=== PATIENT | female | born 1990 | race African-American/Black ===

== ENCOUNTER 2019-06-22 13:09 | Emergency (ER) | payer OTHER, SELFPAY ==
[2019-06-22 13:20] VITALS: BP 106/56; PULSE 68; RESP 18; TEMP 36.6; O2SAT 100
--- NOTE | 2019-06-22 13:40 | ED.URI ---
HPI - URI/Sore Throat General Chief Complaint: Upper Respiratory Infection Stated Complaint: Congestion Time Seen by Provider: 06/22/19 13:27 Source: patient and RN notes reviewed Mode of arrival: ambulatory Limitations: no limitations History of Present Illness HPI Narrative: Patient presents today with a 7-day history of nasal gesturing, cough that is occasionally productive, postnasal drip. Denies fever, shortness of breath. No history of asthma or COPD. She is a non-smoker. She has tried no medications or interventions at home prior to arrival. MD elicited complaint: cough and nasal congestion Related Data Home Medications Medication Instructions Recorded Confirmed multivitamin 06/22/19 Allergies Allergy/AdvReac Type Severity Reaction Status Date / Time Penicillins Allergy Unknown LIP SWELLS Verified 09/22/17 10:17 Review of Systems Review of Systems: Narrative: CONSTITUTIONAL: Denies body aches, fever, chills, or sweats. EYES: Denies visual changes, redness, or discharge. ENT: Denies rhinorrhea, sore throat, or otalgia.+ Congestion, postnasal drip CARDIOVASCULAR: Denies chest pain, palpitations, or edema. RESPIRATORY: Denies dyspnea.+ Cough GASTROINTESTINAL: Denies abdominal pain, nausea, vomiting, or diarrhea. GENITOURINARY: Denies dysuria or hematuria. SKIN: Denies rash, itching, or wounds. MUSCULOSKELETAL: Denies back pain, joint pain, or myalgia. NEUROLOGIC: Denies headache, numbness, tingling, or weakness. PSYCH: Denies depression or anxiety. PMFSH Comments At time of signature, I have reviewed and agree with nursing past medical, surgical, social and family history unless otherwise noted. Please see nursing chart for further information. There is no relevant family history pertinent to the presenting complaint Exam Narrative: Exam Narrative: GENERAL: Well-appearing, well-nourished, and in no acute distress. HEAD: Normocephalic, atraumatic. EYES: EOMI. No redness or drainage. Conjunctivae normal. ENT: Mucous membranes pink and moist. Nares clear. No rhinorrhea. TMs normal bilaterally. Throat normal. Small amount of post nasal drip. Uvula midline. NECK: Normal AROM. Supple. No lymphadenopathy. CHEST: No respiratory distress. Clear to auscultation. HEART: Regular rate and rhythm. No murmur appreciated. Normal peripheral pulses. EXTREMITIES: Normal range of motion. No edema. SKIN: Warm, dry, no rash. NEURO: No focal deficits. Alert and oriented x3. Gait steady. PSYCH: Normal affect. No signs of depression or anxiety. Course Vital Signs Vital signs: Vital Signs Temperature 97.8 F 06/22/19 13:20 Pulse Rate 68 06/22/19 13:20 Respiratory Rate 18 06/22/19 13:20 Blood Pressure 106/56 L 06/22/19 13:20 Pulse Oximetry 100 06/22/19 13:20 Temperature 97.8 F 06/22/19 13:20 Pulse Rate 68 06/22/19 13:20 Respiratory Rate 18 06/22/19 13:20 Blood Pressure 106/56 L 06/22/19 13:20 Pulse Oximetry 100 06/22/19 13:20 Reviewed MDM - URI/Sore Throat Differential Diagnosis Differential diagnosis: Likely upper respiratory infection, otitis media, sinusitis, viral infection, bronchitis and pharyngitis Critical Care Time Critical Care Time Critical Care Time: No Discharge Plan Discharge Clinical Impression: Upper respiratory infection Qualifiers: URI type: unspecified URI Qualified Code(s): J06.9 - Acute upper respiratory infection, unspecified Patient Disposition: Home, Self-Care Condition: Stable Instructions: Upper Respiratory Infection (DC) Additional Instructions: Your symptoms are likely due to a viral illness, which is not treated with antibiotics. Virus symptoms can last for up to 10-14 days. Take Tylenol or ibuprofen for pain or fever. Take [id number] cough medicine if needed for cough such as Delsym, DayQuil, NyQuil. Rest and stay hydrated. Follow up with your PCP in 5-7 days if symptoms are not improving, or sooner if symptoms are wor
== END 2019-06-22 13:42 | disposition home or self-care (01) ==
PROVIDERS: Emergency Provider Nurse Practitioner
DX: J06.9 Acute upper respiratory infection, unspecified (principal)
CPT/HCPCS: 99211; G0463

== ENCOUNTER 2021-02-21 12:42 | Emergency (ER) | payer OTHER, SELFPAY ==
[2021-02-21 14:04] VITALS: BP 110/79; PULSE 92; RESP 18; TEMP 36.8; O2SAT 100
--- NOTE | 2021-02-21 15:48 | PC.NURSE ---
Pt updated on plan, pt states she has not been seen yet, ensured her she will be seen by Dr. Laureano soon as he can, pt states understanding and states she will wait a little longer, pt ask for socks, pt provided socks
--- NOTE | 2021-02-21 16:16 | ED.URI ---
HPI - URI/Sore Throat General Chief Complaint: Upper Respiratory Infection Stated Complaint: day 6 of COVID temp of 104.1 Time Seen by Provider: 02/21/21 15:39 History of Present Illness HPI Narrative: Patient presents with shortness of breath and fever. She was diagnosed with Covid approximately 6 days ago she been using [id number] medications with been intermittently effective for she and the symptoms she was concerned so came to the ER for evaluation. Primary concern is continuation of her fevers that resolved after owrz-dsb-btzpwws medications but returned several hours later. She also reports cough and shortness of breath. Denies any nausea or vomiting. Reports decreased appetite but she has tolerating p.o. Related Data Home Medications Medication Instructions Recorded Confirmed multivitamin 06/22/19 Allergies Allergy/AdvReac Type Severity Reaction Status Date / Time Penicillins Allergy Unknown LIP SWELLS Verified 09/22/17 10:17 Review of Systems Review of Systems: CONSTITUTIONAL: Patient ports fevers and chills EYES: Denies visual changes, redness, or discharge. ENT: Denies rhinorrhea, congestion, sore throat, or otalgia. CARDIOVASCULAR: Denies chest pain, palpitations, or edema. RESPIRATORY: Reports cough and shortness of breath GASTROINTESTINAL: Denies abdominal pain, nausea, vomiting, or diarrhea. GENITOURINARY: Denies dysuria or hematuria. SKIN: Denies rash or itching. MUSCULOSKELETAL: Denies back pain, joint pain, or myalgia. NEUROLOGIC: Denies headache, numbness, dizziness, or weakness. PSYCHIATRIC: Denies anxiety or depression. All systems reviewed & are unremarkable except as noted in HPI and below PMFSH Past Medical History Medical History (Updated 02/21/21 @ 16:22 by Alexi Laureano MD) Patient denies significant medical history Social History Social History (Updated 02/21/21 @ 16:17 by Alexi Laureano MD) Smoking status: Never smoker Exam Narrative: GENERAL: Well-appearing, well-nourished, and in no acute distress. HEAD: Normocephalic, atraumatic. EYES: PERRLA and EOMI. ENT: Nares clear, no rhinorrhea or epistaxis. Mucous membranes moist. NECK: Supple. No masses. No JVD CHEST: Clear to auscultation. No respiratory distress. No wheezes rales or rhonchi HEART: Regular rate and rhythm. No murmur heard. Normal peripheral pulses. ABDOMEN: Soft, nontender, nondistended, normal active bowel sounds. EXTREMITIES: Normal range of motion. No edema. SKIN: Warm, dry, no rash. NEURO: No focal deficits. Alert and oriented x3. PSYCH: Normal mood and affect. Course Vital Signs Vital signs: Vital Signs Temperature 36.8 C 02/21/21 14:04 Pulse Rate 92 02/21/21 14:04 Respiratory Rate 18 02/21/21 14:04 Blood Pressure 110/79 02/21/21 14:04 Pulse Oximetry 100 02/21/21 14:04 Temperature 37.7 C H 02/21/21 16:43 Pulse Rate 100 02/21/21 16:43 Respiratory Rate 18 02/21/21 16:43 Blood Pressure 120/74 02/21/21 16:43 Pulse Oximetry 97 02/21/21 16:43 MDM - URI/Sore Throat MDM Narrative Medical decision making narrative: H&P as above, vss, pt looks clinically well, exam reassuring, labs/img considered, symptomatic relief available as needed, on reevaluation pt continues to looks clinically well. Suspect persistent Covid infection, dns severe sepsis, hypoxia. Spent extended time discussing sebx-qzw-mzmanxh medications such as Tylenol ibuprofen for fever control also discussed supportive therapies for her cough. Plan to tx/monitor as op w/ pcm f/u findings/plan discussed with pt, pt agree/comfortable with plan, return precautions given Discharge Plan Discharge Clinical Impression: COVID Patient Disposition: Home, Self-Care Condition: Improved Instructions: Antibiotic Form, COVID-19 (Coronavirus Disease 2019) (ED) Additional Instructions: Please return if your symptoms worsen or fail to improve. If you develop a fever, can not eat/drink an
[2021-02-21 16:43] VITALS: BP 120/74; PULSE 100; RESP 18; TEMP 37.7; O2SAT 97
== END 2021-02-21 16:49 | disposition home or self-care (01) ==
PROVIDERS: Emergency Provider Emergency Medicine
DX: U07.1 COVID-19 (principal)
CPT/HCPCS: 99283

== ENCOUNTER 2021-02-27 14:44 | Emergency (ER) | payer OTHER, SELFPAY ==
[2021-02-27] VITALS (8 sets, daily range): BP systolic 109–124; BP diastolic 68–78; PULSE 71–92; RESP 11–19; TEMP 36.9; O2SAT 96–100
--- NOTE | ~2021-02-27 | XR_ITS ---
EXAMINATION: XR chest 1V portable DATE: 02/27/2021 15:28 INDICATION: Cough. COVID positive. TECHNIQUE: frontal view of the chest was obtained. COMPARISON: Chest radiograph dated 07/28/2018 FINDINGS: Patchy airspace opacities in the left lower lung zone and more subtly at the right lower lung zone. N o pleural effusion or pneumothorax. The cardiomediastinal silhouette is normal. Mild thoracolumbar de xtrocurvature. IMPRESSION: 1. Mild bibasilar airspace disease consistent with pneumonia. Reviewed, dictated and finalized at location A.
--- NOTE | 2021-02-27 16:15 | ED.GENADULT ---
HPI - General Adult General Chief complaint: Upper Respiratory Infection Stated complaint: COVID, fatigue Time Seen by Provider: 02/27/21 14:49 History of Present Illness HPI narrative: Patient is a 30-year-old female who presents ER with cough. Patient reports she is on day 11 status post Covid infection. No longer having fevers or chills. She reports that she has new green mucus when she is coughing. She has no chest pain or chest pressure. She does have some mild anxiety. Reports she is tried taking throat lozenges and Tessalon Perles without any improvement. She has also taken Decadron and finished it yesterday. Also patient reports yesterday she had a rash on back of her hands that is now resolved. It was itching. No pustules or vesicles. Related Data Home Medications Medication Instructions Recorded Confirmed multivitamin 06/22/19 benzonatate mg PO 02/27/21 02/27/21 dexamethasone 02/27/21 Allergies Allergy/AdvReac Type Severity Reaction Status Date / Time Penicillins Allergy Unknown LIP SWELLS Verified 09/22/17 10:17 Review of Systems Review of Systems: All systems reviewed & are unremarkable except as noted in HPI and below Constitutional: Constitutional: Denies chills, Reports fatigue and Denies fever(s) ENT: Denies nasal congestion and Denies sore throat Cardiovascular: Cardiovascular: Denies chest pain, Denies rapid heart rate and Denies radiating jaw, neck or arm pain Respiratory: Respiratory: Reports cough, Denies dyspnea and Denies wheezing Integumentary/Breasts: Skin/Breast: Reports pruritus and Reports rash PMFSH Past Medical History Medical History (Updated 02/27/21 @ 16:27 by Miguelito Saldana MD) Patient denies significant medical history Social History Social History (Updated 02/21/21 @ 16:17 by Alexi Laureano MD) Smoking status: Never smoker Exam Narrative: GENERAL: Well-appearing, well-nourished, and in no acute distress. HEAD: Normocephalic, atraumatic. CHEST: Clear to auscultation. No respiratory distress. HEART: Regular rate and rhythm. Normal peripheral pulses. EXTREMITIES: Normal range of motion. No edema. SKIN: Warm, dry, no rash. NEURO: Alert and oriented x3. PSYCH: Normal mood and affect. Course Course Emergency Course: Patient informed results. Given the fact that patient has predominantly left-sided pneumonia on the chest x-ray and that she has change in her mucous will prescribe her azithromycin as she may have developed a secondary pneumonia. She is also received MDI/spacer teaching and we will prescribe albuterol. Vital Signs Vital signs: Vital Signs Temperature 98.5 F 02/27/21 14:51 Pulse Rate 74 02/27/21 14:51 Respiratory Rate 13 02/27/21 14:51 Blood Pressure 120/76 02/27/21 14:51 Pulse Oximetry 98 02/27/21 14:51 Temperature 98.5 F 02/27/21 14:51 Pulse Rate 74 02/27/21 14:51 Respiratory Rate 13 02/27/21 14:51 Blood Pressure 120/76 02/27/21 14:51 Pulse Oximetry 98 02/27/21 14:51 Medical Decision Making Vital Signs Vital Signs: Vital Signs Temperature 98.5 F 02/27/21 14:51 Pulse Rate 74 02/27/21 14:51 Respiratory Rate 13 02/27/21 14:51 Blood Pressure 120/76 02/27/21 14:51 Pulse Oximetry 98 02/27/21 14:51 Temperature 98.5 F 02/27/21 14:51 Pulse Rate 74 02/27/21 14:51 Respiratory Rate 13 02/27/21 14:51 Blood Pressure 120/76 02/27/21 14:51 Pulse Oximetry 98 02/27/21 14:51 Imaging Data Radiologist's impression: ITS Impressions Chest X-Ray 02/27/21 15:32 IMPRESSION: 1. Mild bibasilar airspace disease consistent with pneumonia. Discharge Plan Discharge Clinical Impression: Pneumonia Patient Disposition: Home, Self-Care Condition: Stable Instructions: Pneumonia (ED) Additional Instructions: Return to the ER if you cannot breathe, you cannot swallow cannot, you cannot keep down food or water, you lose consciousness, you hav
== END 2021-02-27 17:01 | disposition home or self-care (01) ==
PROVIDERS: Emergency Provider Emergency Medicine
DX: U07.1 COVID-19 (principal); J12.82 Pneumonia due to coronavirus disease 2019
CPT/HCPCS: 71045; 99281; 99283

== ENCOUNTER 2021-03-03 08:18 | Emergency (ER) | payer OTHER, SELFPAY ==
--- NOTE | ~2021-03-03 | XR_ITS ---
EXAMINATION: XR chest 1V portable DATE: 03/03/2021 09:17 INDICATION: Weakness. COVID-19 pneumonia. TECHNIQUE: A single frontal view of the chest was obtained. COMPARISON: Chest single view 02/27/2021 FINDINGS: There are mild airspace opacities in right lower lung zone and left mid and lower lung zone s. No pleural effusion or pneumothorax. The heart size is normal. IMPRESSION: 1. Stable mild airspace opacities in right lower lung zone and left mid and lower lung zones, consist ent with COVID-19 pneumonia. Reviewed, dictated and finalized at location A. GIOUS STUDIES PROFESSOR IMPRESSION: 1. Stable mild airspace opacities in right lower lung zone and left mid and low er lung zones, consistent with COVID-19 pneumonia.
[2021-03-03 08:23] VITALS: BP 118/91; PULSE 97; RESP 14; TEMP 37.1; O2SAT 100
[2021-03-03 08:29] VITALS: O2SAT 100
--- NOTE | 2021-03-03 08:46 | ECG_ITS ---
Measurements Intervals Grant Rate: 80 P: 49 DC: 128 QRS: 50 QRSD: 89 T: 48 QT: 366 QTc: 424 Interpretive Statements SINUS RHYTHM NORMAL ECG Electronically Signed On 03-03-2021 9:05:46 SENIOR ACCOUNT CLERK by Tyshawn Costa D.O.
[2021-03-03] MEDS: LACTATED RINGERS 1,000 ML 999 ML IV CONT (09:07)
[2021-03-03 09:20] LABS: Basophils Percent Auto 0.2 % (0.2-1.2); Eosinophils Absolute Auto 0.1 K/mm3 (0-0.3); Eosinophils Percent Auto 2.8 % (0-4.4); Hematocrit 38.7 % (37.0-47.0); Hemoglobin 13.2 g/dL (12.0-15.0); Immature Granulocyte Absolute 0.05 K/mm3 (0.00-0.031); Immature Granulocyte Percent A 1.2 % (0-0.5); Lymphocytes Absolute Auto 1.35 K/mm3 (0.9-3.2); Lymphocytes Percent Auto 31.8 % (18.3-44.2); Mean Corpuscular HGB Conc 34.1 g/dl (32-36); Mean Corpuscular Hemoglobin 29.3 pg (26-34); Mean Platelet Volume 8.7 fl (7.4-10.4); Monocytes Absolute Auto 0.5 K/mm3 (0.1-0.6); Monocytes Percent Auto 10.8 % (2.6-8.5); Neutrophils Absolute Auto 2.3 K/mm3 (1.3-6.7); Neutrophils Percent Auto 53.2 % (45.5-73.1); Platelet Count Result 424 k/mm3 (150-375); Red Cell Distribution Width 11.7 % (11.5-14.5); White Blood Count 4.2 K/mm3 (4.5-10.0)
--- NOTE | 2021-03-03 09:24 | ED.URI ---
HPI - URI/Sore Throat General Chief Complaint: Upper Respiratory Infection Stated Complaint: COVID + STILL WEAK Time Seen by Provider: 03/03/21 08:28 Source: patient, RN notes reviewed and old records reviewed Mode of arrival: ambulatory Limitations: no limitations History of Present Illness HPI Narrative: This is a 30 year old female who presents for evaluation of weakness and COVID positive. Patient developed symptoms of COVID on 02/16/21, and she had 2 positive at home test. She also tested positive at [facility]. She reports cough, fatigue and intermittent shortness of breath. She was evaluated in ER 4 days ago for her symptoms and she was diagnosed with covid pneumonia. She was prescribed albuterol inhaler and azithromycin. She has returned to ER because she is afraid she is going to . She still feels weak and she still has a dry cough. She states she still has a small amount of shortness of breath. She is not falling or having difficulty walking due to weakness. She intermittently feels lightheaded with walking. She also reports intermittent chest heaviness. She denies fever or chills. She was not vaccinated. Related Data Home Medications Medication Instructions Recorded Confirmed multivitamin 06/22/19 benzonatate mg PO 02/27/21 02/27/21 dexamethasone 02/27/21 Allergies Allergy/AdvReac Type Severity Reaction Status Date / Time Penicillins Allergy Unknown LIP SWELLS Verified 03/03/21 09:27 Review of Systems Review of Systems: All systems reviewed & are unremarkable except as noted in HPI and below PMFSH Past Medical History Medical History Patient denies significant medical history Social History Social History Smoking status: Never smoker Exam Const: General: no acute distress and alert Orientation/consciousness: patient oriented x3 HENMT: Head: normocephalic and atraumatic Ears: TM's normal bilaterally Mouth: Yes Normal oral and palatal mucosa present, Yes lip normal, Yes oropharynx normal and Yes moist mucous membranes Eyes: Pupils: Equal, round and reactive pupils present EOM: EOMs intact bilaterally Resp: Effort & Inspection: normal respiratory effort, not labored, no retractions, not tachypneic and no use of accessory muscles Auscultation: crackles (right basilar ) Cardio: Rate: regular rate Rhythm: regular rhythm Heart sounds: no murmurs GI: GI Palp: Yes Soft to palpation, No Tenderness to palpation present (GI) and No Guarding due to palpation present (GI) Auscultation: normal bowel sounds : General: Yes no CVA tenderness Back/Spine/Pelvis: Back: no CVA tenderness Skin: General skin exam: normal color Neuro: General: patient oriented x3, moves all extremities and CN's II-XI intact bilaterally Extrem: General: normal to inspection Psych: Mental Status: mental status grossly normal Affect: normal affect Course Reevaluation(s) Reevaluation #1: I discussed with patient labs are unremarkable. She has no oxygen requirement. She was given IVF . She has no complaints. She was given reassurance. Date: 03/03/21 Time: 11:20 Vital Signs Vital signs: Vital Signs Temperature 98.8 F 03/03/21 08:23 Pulse Rate 97 03/03/21 08:23 Respiratory Rate 14 03/03/21 08:23 Blood Pressure 118/91 H 03/03/21 08:23 Pulse Oximetry 100 03/03/21 08:23 Temperature 98.8 F 03/03/21 08:23 Pulse Rate 84 03/03/21 11:31 Respiratory Rate 16 03/03/21 11:31 Blood Pressure 125/72 03/03/21 11:31 Pulse Oximetry 100 03/03/21 11:31 MDM - URI/Sore Throat Lab Data Attestation: I reviewed the patient's lab results. Result diagrams: 03/03/21 09:09 03/03/21 09:08 Labs: Lab Results 03/03/21 03/03/21 03/03/21 Range/Units 09:08 09:09 09:09 WBC 4.2 L (4.5-10.0) K/mm3 RBC 4.50 (4.2-5.4) M/mm3 Hgb 13
[2021-03-03 09:32] LABS: Partial Thromboplastin Time 29.7 SECONDS (22.3-36.8); Prothrombin Time 13.3 Seconds (11.1-14.7)
[2021-03-03 09:33] VITALS: BP 110/71; BP 111/66; BP 124/70; PULSE 68; PULSE 89; PULSE 98
[2021-03-03 09:35] LABS: D Dimer 0.45 ug/mL (<0.48)
[2021-03-03 09:43] LABS: Troponin I < 0.012 ng/mL (0.000-0.034)
[2021-03-03 09:54] LABS: Add Urine Microscopic? NO; Appearance Urine Clear (Clear); Bilirubin Urine Negative (Negative); Blood Urine Negative (Negative); Color Urine Colorless (Yellow); Glucose Urine UA Negative (Negative); Ketones Urine Negative (Negative); Leukocyte Esterase Ur Negative LEU/UL (Negative); Nitrate Urine Negative (Negative); Protein Urine Negative (Negative); Urobilinogen Urine Negative mg/dL (<2.0)
[2021-03-03 09:55] LABS: Specific Grav Ur 1.004 (1.001-1.035)
[2021-03-03 10:18] LABS: Alanine Aminotransferase 18 U/L (4-35); Alkaline Phosphatase 35 U/L (38-126); Anion Gap 8 mmol/L (8-16); Aspartate Amino Transferase 27 U/L (14-36); Bilirubin,Total 0.9 mg/dL (0.2-1.3); Blood Urea Nitrogen 4 mg/dL (7-17); Calcium 9.1 mg/dL (8.4-10.2); Carbon Dioxide 29 mmol/L (22-30); Chloride 97 mmol/L (98-107); Estimated CRCL calculation 85 ml/min; Estimated Glomerular Filt Rate > 60; Glucose 100 mg/dL (65-110); Potassium 3.5 mmol/L (3.4-5.0); Sodium 134 mmol/L (137-145)
[2021-03-03 10:20] VITALS: BP 127/67; PULSE 85; RESP 18; O2SAT 99
[2021-03-03 11:31] VITALS: BP 125/72; PULSE 84; RESP 16; O2SAT 100
== END 2021-03-03 11:34 | disposition home or self-care (01) ==
PROVIDERS: Emergency Provider General Practice
DX: U07.1 COVID-19 (principal)
CPT/HCPCS: 36415; 71045; 80053; 81003; 81025; 84484; 85025; 85380; 85610; 85730; 93005; 96360; 99284; J7120

== ENCOUNTER 2021-03-14 17:08 | Emergency (ER) | payer OTHER, SELFPAY ==
[2021-03-14 17:19] VITALS: BP 111/68; PULSE 83; RESP 16; TEMP 36.9; O2SAT 100
--- NOTE | 2021-03-14 18:25 | ED.URI ---
HPI - URI/Sore Throat General Chief Complaint: Upper Respiratory Infection Stated Complaint: Sinus Problem Time Seen by Provider: 03/14/21 18:10 Source: patient, RN notes reviewed and old records reviewed Mode of arrival: ambulatory Limitations: no limitations History of Present Illness HPI Narrative: 31 year old female who presents to [facility] care with complaints of sinus pain, pressure, and nasal congestion with lots of clear nasal drainage with some blood noted for the past few days and has been using saline rinses. Patient states that she had COVID and pneumonia earlier in the month and did take Zithromax RX for the pneumonia with cough resolved. Patient states that she has no sore throat or any known fevers, chills or sweats or any body aches. MD elicited complaint: rhinorrhea, nasal congestion and sinus pain Pertinent past history: pneumonia and other (COVID with pneumonia 02/27/2021) Related Data Allergies Allergy/AdvReac Type Severity Reaction Status Date / Time Penicillins Allergy Unknown LIP SWELLS Verified 03/14/21 17:52 Review of Systems Review of Systems: CONSTITUTIONAL: Denies fever, chills, or sweats. EYES: Denies visual changes, redness, or discharge. ENT positive rhinorrhea, congestion,no sore throat, or otalgia. CARDIOVASCULAR: Denies chest pain, palpitations, or edema. RESPIRATORY: Denies cough or dyspnea. GASTROINTESTINAL: Denies abdominal pain, nausea, vomiting, or diarrhea. GENITOURINARY: Denies dysuria or hematuria. SKIN: Denies rash or itching. MUSCULOSKELETAL: Denies back pain, joint pain, or myalgia. NEUROLOGIC: Denies headache, numbness, or weakness. PSYCHIATRIC: Denies anxiety or depression.anxious All systems reviewed & are unremarkable except as noted in HPI and below PMFSH Past Medical History Medical History (Updated 03/17/21 @ 12:24 by Tereza Lemos NP) Bronchitis COVID-19 Pneumonia UTI (urinary tract infection) Surgical History Surgical History (Updated 03/17/21 @ 12:25 by Tereza Lemos NP) No history of previous surgery Family History Family History (Updated 03/17/21 @ 12:25 by Tereza Lemos NP) Other Family history non-contributory Social History Social History (Updated 03/17/21 @ 12:26 by Tereza Lemos NP) Smoking status: Never smoker Alcohol intake: current Alcohol use details: rare Substance use: never Living arrangements: with family Gender identity (if verbalized by the patient): Female Comments At time of signature, agree with nursing past medical, surgical, social and family history. There is no relevant family history pertinent to the presenting complaint Exam Narrative: GENERAL: Well-appearing, well-nourished, and in no acute distress. HEAD: Normocephalic, atraumatic. EYES: PERRLA and EOMI. ENT: Nares red with swollen turbinated, copious rhinorrhea with some blood noted. Mucous membranes moist.TM's normal with dull light reflex, throat red with no lesions or exudates no tosnil enlargement, post nasal drainage present with sinus pain and pressure verbalized' NECK: Supple.no Lymphadenopathy CHEST: Clear to auscultation. No respiratory distress.DORON 100% on room air HEART: Regular rate and rhythm. No murmur heard. Normal peripheral pulses. ABDOMEN: Soft, nontender, nondistended, normal active bowel sounds. EXTREMITIES: Normal range of motion. No edema. SKIN: Warm, dry, no rash. NEURO: No focal deficits. Alert and oriented x3. Course Vital Signs Vital signs: Vital Signs Temperature 36.9 C 03/14/21 17:19 Pulse Rate 83 03/14/21 17:19 Respiratory Rate 16 03/14/21 17:19 Blood Pressure 111/68 03/14/21 17:19 Pulse Oximetry 100 03/14/21 17:19 Temperature 37.2 C 03/14/21 18:59 Pulse Rate 83 03/14/21 17:19 Respiratory Rate 16 03/14/21 17:19 Blood Pressure 111/68 03/14/21 17:19 Pulse Oximetry 100 03/14/21 17:19 MDM - URI/Sore Throat Differential Diagnosis Differential diagnosis: Likely upp
[2021-03-14 18:59] VITALS: TEMP 37.2
== END 2021-03-14 18:45 | disposition home or self-care (01) ==
PROVIDERS: Emergency Provider Registered Nurse
DX: J01.90 Acute sinusitis, unspecified (principal); Z86.16 Personal history of COVID-19
CPT/HCPCS: 99213; G0463

== ENCOUNTER 2021-03-18 21:19 | Emergency (ER) | payer OTHER, SELFPAY ==
[2021-03-18] VITALS (7 sets, daily range): BP systolic 108–122; BP diastolic 58–84; PULSE 79–93; RESP 11–25; TEMP 36.7; O2SAT 98–100
[2021-03-19] VITALS: PULSE 86; RESP 17
[2021-03-19 00:01] VITALS: BP 109/68; PULSE 114; RESP 20
--- NOTE | 2021-03-19 00:06 | ED.ALLEREA ---
HPI - Allergic Reaction General Chief complaint: Allergic Reaction Stated complaint: possible allergic reaction Time Seen by Provider: 03/19/21 00:06 Source: patient Mode of arrival: ambulatory Limitations: no limitations History of Present Illness HPI narrative: Patient is a 31-year-old female with a history of Covid infection in January, presenting for evaluation of possible allergic reaction. Patient recently completed a course of azithromycin prescribed to her after a visit to this emergency department. Patient was then seen at an urgent care for rhinorrhea, congestion, tooth pain, placed on doxycycline. Patient felt like she had a allergic reaction to the doxycycline with lip swelling, thus saw her primary care physician and the doxycycline was discontinued and the patient was prescribed Levaquin. Patient took her Levaquin this evening and noticed associated right-sided facial swelling. Patient denies any hives, rash. No difficulty breathing. No nausea, vomiting or diarrhea. No lip swelling. No shortness of breath. No chest pain. Patient quite anxious at bedside, pacing in the room. Patient has many questions regarding Covid infection if she has actual bacterial sinusitis. Patient does not understand why she has allergic reactions to all of these medications. Patient has been taking Tylenol for sinus infection which is not improving her symptoms. She is also taking Flonase, Benadryl, prednisone taper. Related Data Home Medications Medication Instructions Recorded Confirmed levofloxacin 03/18/21 prednisone 20 mg PO DAILY 03/18/21 Allergies Allergy/AdvReac Type Severity Reaction Status Date / Time Penicillins Allergy Unknown LIP SWELLS Verified 03/18/21 23:02 doxycycline Allergy Swelling Verified 03/18/21 23:02 of Lip/Tongue/Throat levofloxacin Allergy Swelling Verified 03/18/21 23:02 of Lip/Tongue/Throat Review of Systems Review of Systems: CONSTITUTIONAL: Denies fever, chills, or sweats. EYES: Denies visual changes, redness, or discharge. ENT: Reports rhinorrhea and congestion, denies sore throat, denies facial pain CARDIOVASCULAR: Denies chest pain, palpitations, or edema. RESPIRATORY: Denies cough or dyspnea. GASTROINTESTINAL: Denies abdominal pain, nausea, vomiting, or diarrhea. GENITOURINARY: Denies dysuria or hematuria. SKIN: Denies rash or itching. MUSCULOSKELETAL: Denies back pain, joint pain, or myalgia. NEUROLOGIC: Denies headache, numbness, or weakness. PSYCHIATRIC: Reports anxiety PMFSH Past Medical History Medical History Bronchitis COVID-19 Pneumonia UTI (urinary tract infection) Surgical History Surgical History No history of previous surgery Family History Family History Other Family history non-contributory Social History Social History Smoking status: Never smoker Alcohol intake: current Alcohol use details: rare Substance use: never Gender identity (if verbalized by the patient): Female Exam Narrative: GENERAL: Awake, alert, conversant HEAD: Normocephalic, atraumatic. EYES: PERRLA and EOMI. ENT: Nares clear, no rhinorrhea or epistaxis. Patient has sinus congestion. Mucous membranes moist. NECK: Supple. CHEST: No respiratory distress, breathing even and non labored, lungs are clear to auscultation bilaterally, no crackles, no wheezing HEART: Regular rate, sinus rhythm ABDOMEN:Non distended, non tender EXTREMITIES: Normal range of motion. No edema. SKIN: Warm, dry, no rash. NEURO:No focal deficits. Alert and oriented x3, patient ambulatory with a narrow base, steady gait, strength in the bilateral upper extremities 5/5, strength in the bilateral lower extremities 5/5, intact sensation throughout Course Vital Signs
[2021-03-19 00:15] VITALS: PULSE 91; RESP 13
== END 2021-03-19 01:06 | disposition home or self-care (01) ==
PROVIDERS: Emergency Provider Emergency Medicine
DX: R22.0 Localized swelling, mass and lump, head (principal); T36.4X5A Adverse effect of tetracyclines, initial encounter; Z86.16 Personal history of COVID-19
CPT/HCPCS: 99281

== ENCOUNTER 2021-03-19 15:05 | Emergency (ER) | payer OTHER, SELFPAY ==
--- NOTE | 2021-03-19 15:30 | PC.NURSE ---
Pt walked out - picked her up. Gait steady
== END 2021-03-19 15:30 | disposition left against medical advice (07) ==
LOC: ANHED 15:51
DX: Z53.21 Procedure and treatment not carried out due to patient leaving prior to being seen by health care provider (principal)
CPT/HCPCS: 99199

== ENCOUNTER 2021-04-10 15:44 | Emergency (ER) | payer OTHER, SELFPAY ==
[2021-04-10 16:00] VITALS: BP 111/64; PULSE 83; RESP 18; TEMP 37.3; O2SAT 100
--- NOTE | 2021-04-10 16:48 | ED.GENADULT ---
HPI - General Adult General Chief complaint: Urogenital-Female Stated complaint: UTI Source: patient Mode of arrival: ambulatory Limitations: no limitations History of Present Illness HPI narrative: Patient is a 31-year-old -[place] female who presents to the [facility] via POV for evaluation of urinary symptoms that began today. Additionally, she reports urinary hesitancy. She admits to drinking a lot of tea and increased fluid intakes after testing positive for UTI with home test kit. She was concerned she may need antibiotics BETTY since she is leaving for [place] this evening. History of UTIs. Today's symptoms are similar to previous UTI. Related Data Home Medications Medication Instructions Recorded Confirmed No Home Medications 04/10/21 04/10/21 Allergies Allergy/AdvReac Type Severity Reaction Status Date / Time Penicillins Allergy Unknown LIP SWELLS Verified 04/10/21 16:12 doxycycline Allergy Swelling Verified 04/10/21 16:12 of Lip/Tongue/Throat levofloxacin Allergy Swelling Verified 04/10/21 16:12 of Lip/Tongue/Throat Review of Systems Review of Systems: Pertinent negatives: fever, chills, sweats, change in appetite, poor p.o. intake, malaise, recent weight loss, myalgias, lymphadenopathy, headache, dizziness, STD exposure, painful intercourse, abdominal pain, constipation, nausea, vomiting, diarrhea, abdominal cramping, dysuria, hematuria, urinary frequency/urgency, back pain, urinary incontinence, vaginal bleeding/discharge, penile drainage, shortness of breath, chest pain, and heart palpitations/murmurs. PMFSH Past Medical History Medical History Bronchitis COVID-19 Pneumonia UTI (urinary tract infection) Surgical History Surgical History No history of previous surgery Family History Family History Other Family history non-contributory Social History Social History Smoking status: Never smoker Alcohol intake: current Alcohol use details: rare Substance use: never Gender identity (if verbalized by the patient): Female Comments I have reviewed and agree with the patient's past medical, surgical, social, and family hx as documented by the RN. There is no relevant family history pertinent to the presenting complaint. Exam Narrative: GENERAL: Well-appearing, well-nourished, and in no acute distress. HEAD: Normocephalic, atraumatic. NECK: Supple. No lymphadenopathy or nuchal rigidity. CHEST: Lung sounds are clear to auscultation in bilateral lung watt. No respiratory distress. HEART: Regular rate and rhythm. No murmur, gallop, or rub heard. ABDOMEN: Soft, non-distended, normal active bowel sounds in all quadrants. Mild suprapubic tenderness appreciated upon examination. No guarding. No rebound tenderness. No pulsatile or palpable abdominal mass(es). No CVAT : Bladder non-distended, non-tender EXTREMITIES: Normal range of motion. No edema. SKIN: Warm, dry, no rash. No skin color changes. Excellent turgor. NEURO: No focal deficits. Alert and oriented x3. SPECIAL OBSERVATIONS: Smiling. Laughing. No evidence of discomfort. C/O of of proportion to exam. Eating XXX. Running around. Tolerates food/fluids. Course Vital Signs Vital signs: Vital Signs Temperature 99.1 F 04/10/21 16:00 Pulse Rate 83 04/10/21 16:00 Respiratory Rate 18 04/10/21 16:00 Blood Pressure 111/64 04/10/21 16:00 Pulse Oximetry 100 04/10/21 16:00 Temperature 99.1 F 04/10/21 16:00 Pulse Rate 83 04/10/21 16:00 Respiratory Rate 18 04/10/21 16:00 Blood Pressure 111/64 04/10/21 16:00 Pulse Oximetry 100 04/10/21 16:00 Reviewed Medical Decision Making Differential Diagnosis Differential Diagnosis: Nephrolithias
== END 2021-04-10 16:44 | disposition home or self-care (01) ==
PROVIDERS: Emergency Provider Nurse Practitioner Family
DX: Z71.1 Person with feared health complaint in whom no diagnosis is made (principal); Z86.16 Personal history of COVID-19
CPT/HCPCS: 81003; 87086; 99213; G0463